=== PATIENT | male | born 1975 | race Caucasian/White ===

== ENCOUNTER 2023-06-17 08:38 | Emergency (ER) | payer SELFPAY ==
[2023-06-17 08:51] VITALS: BP 121/76; PULSE 54; RESP 14; TEMP 36.7; O2SAT 99; BMI 24.3
[2023-06-17 08:56] VITALS: BP 121/76; PULSE 54; RESP 14; O2SAT 99
--- NOTE | 2023-06-17 08:58 | ED_ITS ---
HPI - Skin/Abscess/Foreign Bdy General: Chief complaint: Skin/Abscess/Foreign Body Stated complaint: rash/ bug bites Time Seen by Provider: 06/17/23 08:57 Source: patient Mode of arrival: ambulatory Limitations: no limitations History of Present Illness: Patient is a 48-year-old male who presents to ED today with concerns of possible spider bites to his right axillary region and under his chin. [place] of [place] and sweat he feels like he was bit. He states the lesion under his chin has drained a small amount of purulent material. No fevers or other systemic symptoms. Denies history of previous abscesses or MRSA. MD complaint: insect bite/sting and abscess/boil Onset (ago): day(s) Tetanus up to date: yes Location: face (chin) and RUE (R axilla) Severity: moderate Quality: burning Pain Consistency: constant Relieving factors: none Exacerbating factors: none Associated symptoms: Reports no associated symptoms; Deny chills, fever(s), nausea or vomiting Treatments prior to arrival: attempted to drain pus at home Review of Systems Const: Denies: fever(s), chills, body aches, fatigue or malaise Card: Denies: chest pain Resp: Denies: dyspnea GI: Denies: nausea or vomiting Skin/Breast: Reports: other (abscess to chin/R axilla) Neuro: Denies: headache(s), numbness in extremities, weakness in extremities, sensory changes or dizziness Physical Exam Const: COMMON NORMALS: average body habitus, patient oriented x3, no limitations, alert and well nourished GENERAL APPEARANCE: cooperative and disheveled ORIENTATION/CONSCIOUSNESS: Yes awake, Yes oriented to person, Yes oriented to place and Yes oriented to time HENMT: OTHER: small pustular formations to bottom of chin-no drainable abscess Neck/C-Spine: COMMON NORMALS: no lymphadenopathy GENERAL: Yes normal visual inspection, No anterior neck swelling and No submandibular swelling Resp: COMMON NORMALS: normal respiratory effort and clear to auscultation bilaterally AUSCULTATION: clear to auscultation bilaterally Cardio: COMMON NORMALS: regular rate and regular rhythm RATE: regular rate RHYTHM: regular rhythm Extremity: NARRATIVE EXTREMITY EXAM: R axillary region with erythematous very indurated, septated abscess with purulent drainage noted Neuro: COMMON NORMALS: patient oriented x3, moves all extremities, no focal motor deficits and no sensory deficits noted SENSORIUM/ORIENTATION: Yes alert, Yes oriented to person, Yes oriented to place and Yes oriented to time Skin: NARRATIVE SKIN EXAM: see above Procedures Abscess I/D Site: upper extremity (R axilla) Side (if applicable): right Local Anesthetic: lidocaine 1% Amount of anesthesia used (mL): 4.0 Technique: incised with #11 blade Amount of fluid expressed (mL): 3.0 Packing used?: plain Course Vital Signs: Vital signs: Vital Signs Temperature 98.1 F 06/17/23 08:51 Pulse Rate 54 L 06/17/23 08:56 Respiratory Rate 14 06/17/23 08:56 Blood Pressure 121/76 06/17/23 08:56 Pulse Oximetry 99 06/17/23 08:56 Oxygen Delivery Me thod Room Air 06/17/23 08:56 MDM - Skin/Abscess/Foreign Bdy Medicial Decision Making Patient here with an abscess to his right axillary region and similar wound to his chin that is not drainable. Abscess to the axilla was drained and packed. Wound culture obtained. Low suspicion for spider bite. Favor staph. No radiology studies performed this visit Discharge Plan Discharge Patient Disposition: Home Clinical Impression: Abscess of right axilla Condition: Stable Prescriptions: New Bactrim DS 800-160 mg tablet 2 tab PO BID 7 Days Qty: 28 0RF Discharge Orders: Discharge ED (Routine); Ordered 06/17/23 Ordered By: Sydni Reid Patient Instructions: Abscess Incision and Drainage (DC) Activity Restrictions/Additional Instructions: As we discussed keep area dressed. Careful during dressing changes to not accidentally remove your packing. This packing can be removed in 72 hours. Fill your antibiotics today and start them immediately. You need to return to the emergency department in 48 to 72 hours if abscess continues to worsen. Avoid picking. You may keep them clean multiple times daily with warm soap and water. Coding Level of Care Code ED Classified Advertising Supervisor for Myrna Vera
[2023-06-17 09:59] VITALS: BP 121/76; PULSE 54; RESP 14; O2SAT 99
== END 2023-06-17 10:00 | disposition home or self-care (01) ==
PROVIDERS: Emergency Provider Physician Assistant
DX: L02.411 Cutaneous abscess of right axilla (principal)
CPT/HCPCS: 10060; 87070; 87075; 87077; 87186; 87205; 99283

== ENCOUNTER 2023-06-20 13:51 | Emergency (ER) | payer SELFPAY ==
[2023-06-20 13:54] VITALS: BP 131/76; PULSE 71; RESP 18; TEMP 36.8; O2SAT 98; BMI 24.3
[2023-06-20 13:56] VITALS: BP 128/78; PULSE 69; RESP 18; O2SAT 97
--- NOTE | 2023-06-20 14:00 | ED_ITS ---
HPI - General Adult General: Chief complaint: General Medical Stated complaint: needs packing pulled out Time Seen by Provider: 06/20/23 13:59 History of Present Illness: 48-year-old male patient comes in today for removal of packing from abscess I&D done 3 to 4 days ago. Patient reports that he had some insect bites to his axillary arm and that he had tried to express a head from. Patient then started having redness and swelling and was seen in the ER where they did an incision and drainage. Patient denies any chronic medical problems. Patient reports dealing with this up for the last month. Review of Systems General: Reports: 10 or more systems reviewed and unremarkable except in HPI and below Skin/Breast: Reports: erythema and skin tenderness Physical Exam Const: COMMON NORMALS: alert Neck/C-Spine: COMMON NORMALS: full ROM Resp: COMMON NORMALS: normal respiratory effort Cardio: COMMON NORMALS: regular rate RATE: regular rate Back/Pelvis: COMMON NORMALS: thoracic and lumbar spine normal to inspection Extremity: COMMON NORMALS: normal to inspection Neuro: SENSORIUM/ORIENTATION: Yes alert Skin: NARRATIVE SKIN EXAM: Removed packing from a open abscess. Evaluation of the surrounding area notes some scarring and nodular and fibrotic changes. Course Vital Signs: Vital signs: Vital Signs Temperature 98.2 F 06/20/23 13:54 Pulse Rate 71 06/20/23 13:54 Respiratory Rate 18 06/20/23 13:54 Blood Pressure 131/76 06/20/23 13:54 Pulse Oximetry 98 06/20/23 13:54 Oxygen Delivery Me thod Room Air 06/20/23 13:54 MDM - General Adult Medical Decision Making 48-year-old male patient comes in today for complaints of abscess to the right underarm. Patient was seen 2 to 3 days ago and had abscess for incision and drainage. Patient was recommended to have the packing removed. Packing was removed without difficulty. It was noted patient had some fibrotic changes in the surrounding tissue to the abscess. Patient did not report any prior absces ses to the underarm. Differential diagnosis includes abscess, hydradenitis, folliculitis. Recommended follow-up with surgeon for further evaluation regarding the fibrotic tissue. Patient reported understanding agreed to plan. No radiology studies performed this visit Discharge Plan Discharge Condition: Stable Prescriptions: No Action Bactrim DS 800-160 mg tablet 2 tab PO BID 7 Days Qty: 28 0RF Coding Level of Care Code ED Injection Molding Technician for Chg Fwd
[2023-06-20 14:43] VITALS: BP 128/78; PULSE 69; RESP 18; TEMP 36.8; O2SAT 97
--- NOTE | 2023-06-24 09:18 | DCPLANNER ---
Message sent to Gen surg - Follow-up with primary care or surgeon for further evaluation and treatment of persistent symptoms.
== END 2023-06-20 14:35 | disposition home or self-care (01) ==
PROVIDERS: Emergency Provider Nurse Practitioner Family
DX: Z48.00 Encounter for change or removal of nonsurgical wound dressing (principal)
CPT/HCPCS: 99281